=== PATIENT | male | born 1950 | race Caucasian/White ===

== ENCOUNTER 2021-02-14 20:14 | Inpatient (IN) | payer OTHER ==
[2021-02-14] MEDS ORDERED: SODIUM CHLORIDE 0.9% 500 ML 500 ML IV ONE (20:40)
--- NOTE | 2021-02-14 20:40 | ED ---
Extremity Problem HPI - General Chief complaint: Extremity Problem,Nontraumatic Stated complaint: L Leg Wound Time Seen by Provider: 02/14/21 20:29 Source: patient Mode of arrival: ambulatory Limitations: no limitations - History of Present Illness Initial comments: 70-year-old male who denies past medical history presenting to the ER today for chief complaint of left leg wound. Patient states he's had a previous wound that he'll quickly with wound care. He states that for the past 1-2 weeks he has noticed a wound that has been worsening in the left lower leg. Patient states that is now draining and he noticed a blister. Patient denies fevers c hills or general malaise. He denies any nausea or vomiting. Patient denies any weakness or sensation deficits of the extremity. He states it is red and warm to touch. Patient is no additional complaints upon arrival he appears well nontoxic is in no acute distress. - Related Data Home Medications Medication Instructions Recorded Confirmed No Known Home Medications 02/14/21 02/14/21 Allergies Allergy/AdvReac Type Severity Reaction Status Date / Time No Known Allergies Allergy Verified 02/14/21 21:36 Review of Systems ROS Statement: Those systems with pertinent positive or pertinent negative responses have been documented in the HPI. ROS Other: All systems not noted in ROS Statement are negative. Past Medical History Past Medical History: No Reported History History of Any Multi-Drug Resistant Organisms: None Reported Past Surgical History: No Surgical Hx Reported Past Psychological History: No Psychological Hx Reported Smoking Status: Never smoker Past Alcohol Use History: None Reported Past Drug Use History: None Reported General Exam - General Exam Comments Initial Comments: General: The patient is awake and alert, in no distress Eye: +3 mm pupils are equal, round and reactive to light, extra-ocular movements are intact. No nystagmus. There is normal conjunctiva bilaterally. No signs of icterus. Ears, nose, mouth and throat: There are moist mucous membranes and no oral lesions. Neck: The neck is supple, there is no tenderness or JVD. Cardiovascular: There is a regular rate and rhythm. No murmur, rub or gallop is appreciated. Respiratory: Lungs are clear to auscultation, respirations are non-labored, breath sounds are equal. No wheezes, stridor, rales, or rhonchi. Musculoskeletal: Normal ROM, no tenderness. Strength 5/5. Sensation intact. Radial and DP pulses equal bilaterally 2+. Neurological: A&O x 3. CN II-XII intact grossly, There are no obvious motor or sensory deficits. Coordination appears grossly intact. Speech is normal. Skin: Skin is warm and dry and no rashes. draining wound approximately 5- [id number] with a bullae with surrounding redness--its odorous and draining. Circumferential redness of the left lower leg. Psychiatric: Cooperative, appropriate mood & affect, normal judgment. Limitations: no limitations Course Vital Signs 02/14/21 20:15 Temperature 98 F Pulse Rate 97 Respiratory 18 Rate Blood Pressure 164/80 O2 Sat by Pulse 98 Oximetry Medical Decision Making - Medical Decision Making Extensive left lower leg cellulitis with wound that is odorous and draining. There is a bullae noted. No gastric the tissues on x-ray. Pt has no PCP. As patient has poor outpatient care f/u, the extensive nature of disease I feel it is appropriate for patient to be admitted on IV abx, and further monitoring. Dr. James is agreeable. Patient agreeable to admission. Laura BARTLETT for [facility] accepted admission after discussing case. - Lab Data Result diagrams: 02/14/21 20:45 02/14/21 20:45 Lab Results 02/14/21 02/14/21 02/14/21 Range/Units 20:45 20:45 20:45 WBC 8.8 (3.8-10.6) k/uL RBC 4.98 (4.30-5.90) m/uL Hgb 16.1 (13.0-17.5) gm/dL Hct 44.8 (39.0-53.0) % MCV 90.0 (80.0-100.0) fL MCH 32.2 (25.0-35.0) pg MCHC 35.8 (31.0-37.0) g/dL RDW 12.1 (11.5-15.5) % Plt Count 206 (150-450) k/uL MPV 7.8 Neutrophils % 71 % Lymphocytes % 22 % Monocytes % 5 % Eosinophils % 2 % Basophils % 0 % Neutrophils # 6.2 (1.3-7.7) k/uL Lymphocytes # 1.9 (1.0-4.8) k/uL Monocytes # 0.4 (0-1.0) k/uL Eosinophils # 0.1 (0-0.7) k/uL Basophils # 0.0 (0-0.2) k/uL Sodium 139 (137-145) mmol/L Potassium 4.2 (3.5-5.1) mmol/L Chloride 105 (98-107) mmol/L Carbon Dioxide 24 (22-30) mmol/L Anion Gap 10 mmol/L BUN 19 (9-20) mg/dL Creatinine 1.12 (0.66-1.25) mg/dL Est GFR (CKD-EPI)AfAm 78 (>60 ml/min/1.73 sqM) Est GFR (CKD-EPI)NonAf 67 (>60 ml/min/1.73 sqM) Glucose 144 H (74-99) mg/dL Plasma Lactic Acid Manny 2.8 H* (0.7-2.0) mmol/L Calcium 9.4 (8.4-10.2) mg/dL Total Bilirubin 0.5 (0.2-1.3) mg/dL AST 26 (17-59) U/L ALT 24 (4-49) U/L Alkaline Phosphatase 70 (38-126) U/L Total Protein 6.8 (6.3-8.2) g/dL Albumin 4.1 (3.5-5.0) g/dL Disposition Clinical Impression: Leg wound, left, Left leg cellulitis Disposition: ADMITTED IP TO THIS HOSP Condition: Stable Is patient prescribed a controlled substance at d/c from ED?: No Referrals: None,Stated [Primary Care Provider] - 1-2 days Time of Disposition: 21:57 Decision to Admit Reason: Admit from EC Decision Date: 02/14/21 Decision Time: 21:57
[2021-02-14] MEDS ORDERED: VANCOMYCIN IV PER PHARMACY 1 EACH MISC MISCELLANE PRN (20:41)
[2021-02-14] MEDS ORDERED: PIPERACILLIN-TAZOBACTAM 3.375 GM in SODIUM CHLORIDE 0.9% 100 ML IVPB STA (20:41)
[2021-02-14] MEDS ORDERED: VANCOMYCIN 1,750 MG in SODIUM CHLORIDE 0.9% 500 ML 500 ML IVPB STA (20:49)
[2021-02-14] MEDS: SODIUM CHLORIDE 0.9% 1,000 ML IV SCH (21:06)
--- NOTE | 2021-02-14 21:11 | XR ---
EXAMINATION TYPE: XR tibia fibula LT DATE OF EXAM: 02/14/2021 COMPARISON: NONE HISTORY: Pain TECHNIQUE: 4 views FINDINGS: There is diffuse soft tissue swelling around the lower leg and ankle. I see no fracture nor dislocation. Ankle mortise is anatomic. IMPRESSION: Soft tissue swelling. No fracture seen.
[2021-02-14 21:19] LABS: Basophils % (A) 0 %; Eosinophils # (A) 0.1 k/uL (0-0.7); Eosinophils % (A) 2 %; HCT 44.8 % (39.0-53.0); HGB 16.1 gm/dL (13.0-17.5); Lymphocytes # (A) 1.9 k/uL (1.0-4.8); Lymphocytes % (A) 22 %; MCH 32.2 pg (25.0-35.0); MCHC 35.8 g/dL (31.0-37.0); Mean Platelet Volume 7.8; Monocytes # (A) 0.4 k/uL (0-1.0); Monocytes % (A) 5 %; Neutrophils # (A) 6.2 k/uL (1.3-7.7); Neutrophils % (A) 71 %; Platelet Count 206 k/uL (150-450); RBC 4.98 m/uL (4.30-5.90); RDW 12.1 % (11.5-15.5); WBC 8.8 k/uL (3.8-10.6)
[2021-02-14 21:37] LABS: Albumin 4.1 g/dL (3.5-5.0); Calcium 9.4 mg/dL (8.4-10.2); Potassium 4.2 mmol/L (3.5-5.1); Total Bilirubin 0.5 mg/dL (0.2-1.3); Total Protein 6.8 g/dL (6.3-8.2)
[2021-02-14] MEDS ORDERED: NALOXONE 0.4 MG/ML 1 ML VIAL IV PRN (21:58)
[2021-02-14] MEDS ORDERED: SODIUM CHLORIDE 0.9% 1,000 ML IV ONE (22:32)
[2021-02-15] MEDS: PIPERACILLIN-TAZOBACTAM 3.375 GM in SODIUM CHLORIDE 0.9% 100 ML IVPB SCH ×2 (04:19→13:11)
[2021-02-15] MEDS: SODIUM CHLORIDE 0.9% 1,000 ML IV SCH (09:17)
[2021-02-15] MEDS: VANCOMYCIN 1,750 MG in SODIUM CHLORIDE 0.9% 500 ML 500 ML IVPB SCH ×2 (09:17→23:09)
--- NOTE | 2021-02-15 15:36 | P.HPIM ---
History of Present Illness 70-year-old male who denies past medical history presenting to the ER today for chief complaint of left leg wound. Patient states he's had a previous wound that he'll quickly with wound care. He states that for the past 1-2 weeks he has noticed a wound that has been worsening in the left lower leg. Patient states that is now draining and he noticed a blister. Patient denies fevers chills or general malaise. He denies any nausea or vomiting. Patient denies any weakness or sensation deficits of the extremity. He states it is red and warm to touch. Patient is no additional complaints upon arrival he appears well nontoxic is in no acute distress. Patient usually follows up with the wound care at [facility]. Patient did have lactic acidosis patient was started on vancomycin and the Zosyn patient appears to have chronic venous stasis, venous stasis dermatosis and venous ulceration of the leg. Review of Systems REVIEW OF SYSTEMS: CONSTITUTIONAL: No fever, no malaise, no fatigue. HEENT: No recent visual problems or hearing problems. Denied any sore throat. CARDIOVASCULAR: No chest pain, orthopnea, PND, no palpitations, no syncope. PULMONARY: No shortness of breath, no cough, no hemoptysis. GASTROINTESTINAL: No diarrhea, no nausea, no vomiting, no abdominal pain. NEUROLOGICAL: No headaches, no weakness, no numbness. HEMATOLOGICAL: Denies any bleeding or petechiae. GENITOURINARY: Denies any burning micturition, frequency, or urgency. MUSCULOSKELETAL/RHEUMATOLOGICAL: Denies any joint pain, swelling, or any muscle pain. ENDOCRINE: Denies any polyuria or polydipsia. The rest of the 14-point review of systems is negative. Past Medical History Past Medical History: No Reported History History of Any Multi-Drug Resistant Organisms: None Reported Past Surgical History: No Surgical Hx Reported Past Anesthesia/Blood Transfusion Reactions: No Reported Reaction Past Psychological History: No Psychological Hx Reported Smoking Status: Never smoker Past Alcohol Use History: None Reported Past Drug Use History: None Reported Medications and Allergies Home Medications Medication Instructions Recorded Confirmed Type No Known Home Medications 02/14/21 02/14/21 History Allergies Allergy/AdvReac Type Severity Reaction Status Date / Time No Known Allergies Allergy Verified 02/14/21 21:36 Physical Exam Vitals: Vital Signs Temp Pulse Pulse Resp BP BP BP 02/15/21 14:45 98.4 F 90 16 144/81 02/15/21 06:55 98.4 F 89 16 155/83 02/15/21 02:00 97.5 F L 85 16 136/80 02/15/21 00:04 98.2 F 102 H 20 152/81 84/51 02/14/21 23:20 97.9 F 96 18 143/75 02/14/21 20:15 98 F 97 18 164/80 Pulse Ox 02/15/21 14:45 91 L 02/15/21 06:55 95 02/15/21 02:00 94 L 02/15/21 00:04 97 02/14/21 23:20 98 02/14/21 20:15 98 Intake and Output 02/15/21 02/15/21 02/15/21 06:59 14:59 22:59 Intake Total 300 Balance 300 Intake: Oral 300 Other: # Voids 2 2 # Bowel Movements 0 Weight 106.141 kg PHYSICAL EXAMINATION: GENERAL: The patient is alert and oriented x3, not in any acute distress. Well developed, well nourished. HEENT: Pupils are round and equally reacting to light. EOMI. No scleral icterus. No conjunctival pallor. Normocephalic, atraumatic. No pharyngeal erythema. No thyromegaly. CARDIOVASCULAR: S1 and S2 present. No murmurs, rubs, or gallops. PULMONARY: Chest is clear to auscultation, no wheezing or crackles. ABDOMEN: Soft, nontender, nondistended, normoactive bowel sounds. No palpable organomegaly. MUSCULOSKELETAL: No joint swelling or deformity. EXTREMITIES: No cyanosis, clubbing, or pedal edema. NEUROLOGICAL: Gross neurological examination did not reveal any focal deficits. SKIN: Chronic bilateral venous stasis with dermatosis, patient has a 4 into 2 cm stage II ulcer in the left leg on the lateral aspect with on healthy base with pus pockets with surrounding cellulitis. Results CBC & Chem 7: 02/14/21 20:45 02/14/21 20:45 Labs: Abnormal Lab Results - Last 24 Hours (Table) 02/14/21 02/14/21 02/15/21 Range/Units 20:45 20:45 00:09 Glucose 144 H (74-99) mg/dL Plasma Lactic Acid Manny 2.8 H* 2.7 H* (0.7-2.0) mmol/L Microbiology - Last 24 Hours (Table) 02/14/21 20:45 Gram Stain - Preliminary Leg - Left Wound Culture - Preliminary Thrombosis Risk Factor Assmnt - Choose All That Apply Any of the Below Risk Factors Present?: Yes Each Factor Represents 1 point: Age 41-60 years Other Risk Factors: Yes Each Risk Factor Represents 2 Points: Age 61-74 years Other congenital or acquired thrombophilia - If yes, enter type in comment: No Thrombosis Risk Factor Assessment Total Risk Factor Score: 3 Thrombosis Risk Factor Assessment Level: Moderate Risk Assessment and Plan Plan: -Infected left leg ulcer: May need debridement vascular surgery was consulted and he broad-spectrum antibiotics as mentioned above and infectious disease will be consulted. Patient will need aggressive wound care - chronic venous stasis: IV fluids were discontinued patient will be started on low-dose of Lasix with the kidney function monitoring of his creatinine goes up stairs significant to be discontinued and patient need to elevate the legs and use either compression socks or Aaron bandage -DVT prophylaxis with Lovenox
[2021-02-15] MEDS: FUROSEMIDE 10 MG/ML 2 ML VIAL IV SCH (16:04)
[2021-02-15] MEDS: AMPICILLIN-SULBACTAM 3 GM in SODIUM CHLORIDE 0.9% 100 ML IVPB SCH (17:48)
--- NOTE | 2021-02-15 18:01 | CT ---
EXAMINATION TYPE: CT lower leg LT w con DATE OF EXAM: 02/15/2021 COMPARISON: None HISTORY: Left lower leg abscess CT DLP: 807 mGycm Automated exposure control for dose reduction was used. CONTRAST: Performed with IV Contrast, patient injected with 100 mL of Isovue 300. Images obtained from the distal femur to the bottom of the foot with IV contrast. There is subcutaneous edema around the lower leg extending from the proximal calf to the ankle. This is worse on the lateral aspect of the left lower leg. The muscle bundles appear intact. There is no d rainable fluid collection. The tibia and fibula appear intact. There is no pathologic enhancement. Th e knee joint is anatomic. There is no evidence of knee joint effusion. Ankle mortise is anatomic. Exa m limited somewhat by motion at the foot. The metatarsals appear intact. I see no focal bone destruct ion. There is no evidence of a foreign body. IMPRESSION: Diffuse subcutaneous edema around the lower leg that is worse on the lateral aspect. No drainable flu id collection. No evidence of osteomyelitis. No fracture. This is consistent with severe cellulitis.
[2021-02-16] MEDS: AMPICILLIN-SULBACTAM 3 GM in SODIUM CHLORIDE 0.9% 100 ML IVPB SCH ×2 (02:44→06:06)
--- NOTE | 2021-02-16 06:50 | CONS ---
CONSULTATION DATE OF SERVICE: 02/15/2021 REASON FOR CONSULTATION: Left lower extremity wound and cellulitis. HISTORY OF PRESENT ILLNESS: The patient is a 70-year-old male presenting to the ER at [facility] last night for evaluation of left lower extremity wound and swelling and redness. The patient mentioned he did start having a wound on the left lower leg about 1-2 weeks ago. The patient denies having history of any trauma. The patient mentioned that this started more likely as a ruptured blister to the left lateral leg. Denies having any significant drainage from the area. The patient has been using some local treatment without any improvement with nonhealing of this wound. He presented to the hospital last night where the patient was evaluated by the ER physician. On arrival to the ER, the patient has been afebrile and no fever has been recorded since admission to the hospital. The patient did have a lactic acid 2.7, white count was normal. Creatinine was normal. Liver enzymes were normal. Local wound culture obtained currently pending. X-rays of the tibia-fibula did not show any bony changes. The patient was started on vancomycin and Zosyn. Infectious Disease was consulted for further management of antibiotic therapy. The patient mentioned the wound has been there for about 1-2 weeks, however, no history of any trauma. He did have mild dull aching pain to the wound area, 2 to 3/10 and no radiation and denies any foul-smelling purulent drainage. REVIEW OF SYSTEMS: Positive points have been mentioned in HPI. Rest of the systems are negative. PAST MEDICAL HISTORY: Lower extremity venous stasis ulcers and cellulitis. Denies any history of diabetes, hypertension. PAST SURGICAL HISTORY: No major surgery. SOCIAL HISTORY: Denies smoking, drinking, drug use. FAMILY HISTORY: No pertinent findings noticed. ALLERGIES: No known drug allergies. MEDICATIONS: The patient is currently on Lovenox, Lasix, Narcan, vancomycin and Zosyn. PHYSICAL EXAMINATION: VITAL SIGNS: Blood pressure 134/70 with a pulse of 86, temperature 98.2, he is 94% on room air. GENERAL DESCRIPTION: Patient is an elderly male up in the chair in no distress. No tachypnea or accessory muscles of respiration use. HEENT: Examination shows no pallor or scleral icterus. Oral mucous membrane is dry. No pharyngeal erythema or thrush. NECK: Trachea central, no thyromegaly. LUNGS: Unlabored breathing, clear to auscultation. No wheeze or crackle. HEART: S1-S2, regular rate and rhythm. ABDOMEN: Soft, no tenderness. No guarding or rigidity. EXTREMITIES: Left lower extremity did have diffuse swelling and redness and did have some wound to the left lateral leg with some fluctuation noticed. No foul smelling drainage. DIAGNOSTIC IMPRESSION: Patient with acute left lower extremity wound with cellulitis, concern for underlying abscess or possible infected hematoma, likely from a gram-positive skin shyla. Gram- negative infection not entirely excluded. PLAN: 1. CT of the left lower extremity to make sure no evidence of any abscess that may need to be drained. 2. Patient is covered with vancomycin, Pharmacy to dose, continue while watching his kidney function closely. However, switch Zosyn to Unasyn to decrease the risk of nephrotoxicity. 3. Local wound care with dry Aquacel Silver dressing followed by Aaron wrap for compression. 4. We will follow on clinical condition and culture to further adjust medication if needed. Thank you for this consultation. Will follow this patient along with you. MMODL / IJN: [id number] /
[2021-02-16] MEDS: FUROSEMIDE 10 MG/ML 2 ML VIAL IV SCH (08:14)
[2021-02-16] MEDS: ENOXAPARIN 40 MG/0.4 ML SYRINGE SQ SCH (08:14)
[2021-02-16 09:29] LABS: HCT 42.1 % (39.6-50.0); HGB 14.7 g/dL (13.0-17.0); MCH 31.7 pg (27.0-32.0); MCHC 34.9 g/dL (32.0-37.0); MCV 90.9 fL (80.0-97.0); Mean Platelet Volume 10.8 fL (9.5-12.2); Platelet Count 183 X 10*3/uL (140-440); RBC 4.63 X 10*6/uL (4.40-5.60); RDW 12.2 % (11.5-14.5); WBC 6.93 X 10*3/uL (4.50-10.00)
[2021-02-16 09:34] LABS: African American GFR (CKD) 79.5 (60.0-200.0); BUN/Creat Ratio 12.73 Ratio (12.00-20.00); Calcium 8.8 mg/dL (8.7-10.3); Non-African American GFR(CKD) 68.6 (60.0-200.0); Potassium 4.2 mmol/L (3.5-5.5)
[2021-02-16] MEDS ORDERED: CEFEPIME 2 GM in SODIUM CHLORIDE 0.9% 100 ML IVPB ONE (10:00)
--- NOTE | 2021-02-16 13:39 | P.GSCN ---
History of Present Illness History of present illness: 70-year-old gentleman patient has been admitted with history of swelling of the both lower extremity. Patient developed a blister on the lateral aspect of the left lower leg and has been admitted for IV antibiotic and local wound care. Patient has history of 4 chronic venous hypertension no history of DVT in the past. Computed tomography scan of the neck shows negative for abscess Neck examination neck is supple no bruit appreciated Chest is clear first and second sound normal Abdomen soft nontender Vascular femorals are 2+ bilateral patient has a Brown induration of both lower extremity left leg has a lateral aspect has a superficial wound on the lateral aspect no discharge noted Plan is Aquacel silver to the left lower extremity one pillow elevation of the both lower extremity follow with you if patient goes home we'll follow Tuesday the wound clinic at [facility] Past Medical History Past Medical History: No Reported History History of Any Multi-Drug Resistant Organisms: None Reported Past Surgical History: No Surgical Hx Reported Past Anesthesia/Blood Transfusion Reactions: No Reported Reaction Past Psychological History: No Psychological Hx Reported Smoking Status: Never smoker Past Alcohol Use History: None Reported Past Drug Use History: None Reported Medications and Allergies Home Medications Medication Instructions Recorded Confirmed Type No Known Home Medications 02/14/21 02/14/21 History Allergies Allergy/AdvReac Type Severity Reaction Status Date / Time No Known Allergies Allergy Verified 02/14/21 21:36 Surgical - Exam Vital Signs Temp Pulse Resp BP Pulse Ox 98 F 97 18 164/80 98 02/14/21 20:15 02/14/21 20:15 02/14/21 20:15 02/14/21 20:15 02/14/21 20:15 Results - Labs 02/16/21 05:19 02/16/21 05:19 Microbiology - Last 24 Hours (Table) 02/14/21 20:45 Gram Stain - Preliminary Leg - Left Wound Culture - Preliminary Gram Neg Bacilli 02/14/21 20:45 Blood Culture - Preliminary Blood No Growth after 24 hours 02/14/21 21:00 Blood Culture - Preliminary Blood No Growth after 24 hours Diabetes panel 02/16/21 Range/Units 05:19 Sodium 140 (135-145) mmol/L Potassium 4.2 (3.5-5.5) mmol/L Chloride 106 (96-109) mmol/L Carbon Dioxide 25.0 (21.6-31.8) mmol/L BUN 14.0 (9.0-27.0) mg/dL Creatinine 1.1 (0.6-1.5) mg/dL Glucose 107 (70-110) mg/dL Calcium 8.8 (8.7-10.3) mg/dL Calcium panel 02/16/21 Range/Units 05:19 Calcium 8.8 (8.7-10.3) mg/dL Pituitary panel 02/16/21 Range/Units 05:19 Sodium 140 (135-145) mmol/L Potassium 4.2 (3.5-5.5) mmol/L Chloride 106 (96-109) mmol/L Carbon Dioxide 25.0 (21.6-31.8) mmol/L BUN 14.0 (9.0-27.0) mg/dL Creatinine 1.1 (0.6-1.5) mg/dL Glucose 107 (70-110) mg/dL Calcium 8.8 (8.7-10.3) mg/dL Adrenal panel 02/16/21 Range/Units 05:19 Sodium 140 (135-145) mmol/L Potassium 4.2 (3.5-5.5) mmol/L Chloride 106 (96-109) mmol/L Carbon Dioxide 25.0 (21.6-31.8) mmol/L BUN 14.0 (9.0-27.0) mg/dL Creatinine 1.1 (0.6-1.5) mg/dL Glucose 107 (70-110) mg/dL Calcium 8.8 (8.7-10.3) mg/dL
--- NOTE | 2021-02-16 14:11 | P.CONS ---
History of Present Illness - Reason for Consult Consult date: 02/16/21 wound care - History of Present Illness This is a 70-year-old patient was admitted with a history of swelling of both lower extremity. Patient developed a blister to the lateral aspect of the left lower leg and was admitted for cellulitis, local wound care and IV antibiotics. Patient has history of chronic venous hypertension to bilateral lower extremities. He is no history of DVTs in the past. Right lower extremity is edematous with no open ulcerations. Left lower extremity has a dressing in place that is clean and dry. Ulceration was assessed by Dr. Sanchez previously. Patient has a nonhealing ulcerative fat layer exposure to the lateral aspect of the left lower extremity. Review Of Systems: Constitutional: No fever, no chills, no night sweats. No weight change. No weakness, fatigue or lethargy. No daytime sleepiness. Integumentary:reports wounds, no lesions. No rash or pruritus. No unusual bruising. No change in hair or nails. Physical exam: General Appearance: Alert, cooperative, no distress, appears stated age. Skin: See HPI all other Skin color, texture, tugor normal, no rashes or lesions. Neurologic: Alert oriented x3 Assessment/plan: 1. Chronic venous hypertension with ulceration bilateral lower extremities. Apply absorptive silver to the left lower extremity saline moistened gauze dry gauze rolled gauze secured with paper tape. 2 layers of Tubigrip to help with compression. Change Tuesday. Patient will follow-up in the wound care center with Dr. Sanchez on Tuesday at 2:00. Right lower extremity apply zinc barrier cream 2 layers of Tubigrip changing every other day. 2. Nonhealing ulceration with fatty layer exposure left lateral lower extremity. As noted above Thank you for the consultation any questions please contact the wound care center DNP note has been reviewed and discussed with Dr. Hitchcock and the impression and plan of care has been directed as dictated. Past Medical History Past Medical History: No Reported History History of Any Multi-Drug Resistant Organisms: None Reported Past Surgical History: No Surgical Hx Reported Past Anesthesia/Blood Transfusion Reactions: No Reported Reaction Past Psychological History: No Psychological Hx Reported Smoking Status: Never smoker Past Alcohol Use History: None Reported Past Drug Use History: None Reported Medications and Allergies Home Medications Medication Instructions Recorded Confirmed Type No Known Home Medications 02/14/21 02/14/21 History Allergies Allergy/AdvReac Type Severity Reaction Status Date / Time No Known Allergies Allergy Verified 02/14/21 21:36 Physical Exam Vitals: Vital Signs Temp Pulse Resp BP Pulse Ox 02/16/21 07:00 97.8 F 77 16 130/76 92 L 02/16/21 02:00 98.2 F 76 16 115/67 93 L 02/15/21 20:00 98.2 F 76 18 124/70 94 L 02/15/21 14:45 98.4 F 90 16 144/81 91 L Intake and Output 02/15/21 02/16/21 02/16/21 22:59 06:59 14:59 Other: # Voids 1 3 Results CBC & Chem 7: 02/16/21 05:19 02/16/21 05:19 Labs: Microbiology - Last 24 Hours (Table) 02/14/21 20:45 Gram Stain - Preliminary Leg - Left Wound Culture - Preliminary Gram Neg Bacilli 02/14/21 20:45 Blood Culture - Preliminary Blood No Growth after 24 hours 02/14/21 21:00 Blood Culture - Preliminary Blood No Growth after 24 hours Assessment and Plan (1) Chronic venous hypertension w/ulcer and inflammation involv both sides Current Visit: Yes Status: Acute Code(s): I87.333 - CHRONIC VENOUS HTN W ULCER AND INFLAM OF BILATERAL LOW EXTRM; L97.919 - NON-PRS CHRONIC ULC UNSP PRT OF R LOW LEG W UNSP SEVERITY; L97.929 - NON-PRS CHRONIC ULC UNSP PRT OF L LOW LEG W UNSP SEVERITY SNOMED Code(s): 028899609 (2) Nonhealing ulcer of left lower extremity with fat layer exposed Current Visit: Yes Status: Acute Code(s): L97.922 - NON-PRS CHR ULC UNSP PRT OF L LOW LEG W FAT LAYER EXPOSED SNOMED Code(s): 08991315
[2021-02-16] MEDS: CEFEPIME 2 GM in SODIUM CHLORIDE 0.9% 100 ML IVPB SCH (22:42)
--- NOTE | 2021-02-17 01:26 | PN ---
PROGRESS NOTE DATE OF SERVICE: 02/16/2021 REASON FOR FOLLOWUP: Left lower extremity wound and cellulitis. INTERVAL HISTORY: Patient is currently afebrile. The patient is breathing comfortably. Patient denies having any chest pain. No shortness of breath or cough. No nausea. No vomiting. No abdominal pain or any worsening pain to the left leg. PHYSICAL EXAMINATION: Blood pressure 145/77, pulse of 83, temperature 98.3. He is 94% on room air. General description: The patient is an elderly male up in the chair in no distress. Respiratory system: Unlabored breathing, clear to auscultation anteriorly. Heart S1, S2. Regular rate and rhythm. Abdomen soft, no tenderness. Left lower extremity is currently dressed up. No obvious drainage on the dressing. LABS: Hemoglobin is 14.3, white count 6.9, BUN of 14, creatinine 1.1. DIAGNOSTIC IMPRESSION AND PLAN: Patient with left lower extremity wound cellulitis. CT was negative for any abscess. Wound culture with Gram-negative. Patient is covered with Cefepime. Vancomycin has been discontinued and we will monitor clinical course closely. MMODL / IJN: [id number] /
[2021-02-17] MEDS: FUROSEMIDE 10 MG/ML 2 ML VIAL IV SCH (08:35)
[2021-02-17] MEDS: CEFEPIME 2 GM in SODIUM CHLORIDE 0.9% 100 ML IVPB SCH ×2 (08:35→20:15)
[2021-02-17] MEDS: ENOXAPARIN 40 MG/0.4 ML SYRINGE SQ SCH (08:35)
--- NOTE | 2021-02-17 14:50 | P.PN ---
Subjective Progress Note Date: 02/17/21 This is a pleasant 70-year-old male who was recently admitted for left leg wound possible cellulitis and is being closely monitored. Infectious disease along with wound care following. Patient is maintained on IV antibiotics in the form of cefepime and will continue at this time while waiting for cultures to finalized. Preliminary culture showing gram negative bacilli and Staphylococcus aureus. Patient did have wound dressings done today that are dry and intact. She also has some bilateral lower extremity swelling and edema noted and will continue with Aaron wraps at this time. Patient instructed to elevate lower extremities while at rest. Patient will continue to follow with Dr. Sanchez at the wound center in the outpatient setting. Review of systems: Constitutional: No reports of fatigue, fever, or chills Cardiovascular: No reports of chest pain or palpitations Respiratory: No reports of shortness of breath or cough GI: No reports of nausea, vomiting, or diarrhea : No reports of dysuria or retention Neurovascular: No reports of weakness or numbness All medications have been reviewed Objective - Vital Signs Vital signs: Vital Signs Temp 98.2 F 02/17/21 14:00 Pulse 82 02/17/21 14:00 Resp 16 02/17/21 14:00 BP 137/55 02/17/21 14:00 Pulse Ox 95 02/17/21 14:00 Intake & Output 02/16/21 02/17/21 02/17/21 18:59 06:59 18:59 Other: Voiding Method Toilet # Voids 2 2 3 # Bowel Movements 0 - Exam GENERAL: The patient is alert and oriented x3, not in any acute distress. Well developed, well nourished. HEENT: Pupils are round and equally reacting to light. EOMI. No scleral icterus. No conjunctival pallor. Normocephalic, atraumatic. No pharyngeal erythema. No thyromegaly. CARDIOVASCULAR: S1 and S2 present. No murmurs, rubs, or gallops. PULMONARY: Chest is clear to auscultation, no wheezing or crackles. ABDOMEN: Soft, nontender, nondistended, normoactive bowel sounds. No palpable organomegaly. MUSCULOSKELETAL: No joint swelling or deformity. EXTREMITIES: No cyanosis, clubbing, or pedal edema. NEUROLOGICAL: Gross neurological examination did not reveal any focal deficits. SKIN: Chronic bilateral venous stasis with dermatosis, patient has a 4x2 cm stage II ulcer in the left leg on the lateral aspect with on healthy base with pus pockets with surrounding cellulitis. Wound dressing is currently dry and intact and recently changed - Labs CBC & Chem 7: 02/16/21 05:19 02/17/21 04:53 Labs: Microbiology - Last 24 Hours (Table) 02/14/21 20:45 Gram Stain - Preliminary Leg - Left Wound Culture - Preliminary Gram Neg Bacilli Presumptive Staph aureus 02/14/21 20:45 Blood Culture - Preliminary Blood No Growth after 48 hours 02/14/21 21:00 Blood Culture - Preliminary Blood No Growth after 48 hours Assessment and Plan Assessment: -Infected left leg ulcer: Currently maintained on IV cefepime and infectious disease following. Patient was seen by Dr. Sanchez and will be following in the outpatient setting. Care is following. Patient will need aggressive wound care -chronic venous stasis: Patient is receiving IV Lasix 20 mg daily and using Aaron wraps to bilateral lower extremities for continued swelling and edema noted. Patient also instructed to elevate lower extremities while at rest. -DVT prophylaxis with Lovenox Plan: Continue with current medications. Patient is maintained on IV cefepime while awaiting for cultures to finalized. Preliminary culture showing gram-negative bacilli with Staphylococcus aureus and awaiting for finalized cultures. Infe ctious disease is following along with wound care. Patient will follow-up with Dr. Sanchez at the wound center in the outpatient setting. Discussed with the patient about elevating lower extremities while at rest to help with the edema along with continuing with Aaron wraps and recommend wrapping from the toes up to the knees to help with the swelling. Will repeat a.m. labs and continue to monitor closely. Further recommendations to follow based on the clinical course of the patient.
--- NOTE | 2021-02-18 01:51 | PN ---
PROGRESS NOTE DATE OF SERVICE: 02/17/2021 REASON FOR FOLLOWUP: Left lower extremity wound and cellulitis. INTERVAL HISTORY: Patient is currently afebrile. The patient is breathing comfortably. The patient denies having any chest pain, shortness of breath or cough. No nausea, vomiting, abdominal pain, or any worsening pain to the left leg. PHYSICAL EXAMINATION: Blood pressure 145/78 with a pulse of 71, temperature of 98. He is 96% on room air. General description is an elderly male lying in bed in no distress. Respiratory system: Unlabored breathing, clear to auscultation anteriorly. Heart S1, S2. Regular rate and rhythm. Abdomen: Soft, no tenderness. Left leg did have swelling and redness. LABS: Wound culture showing gram-negative as well as Staph aureus. DIAGNOSTIC IMPRESSION AND PLAN: Patient with left lower extremity wound and cellulitis. Culture with Gram-negative and Staph aureus, possible MSSA. Patient is covered with cefepime. Plan is to continue with current antibiotic while waiting for the culture to finalize. Local wound care with Aquacel dressing and Aaron wrap. Continue supportive care. MMODL / IJN: [id number] /
[2021-02-18] MEDS: FUROSEMIDE 10 MG/ML 2 ML VIAL IV SCH (07:28)
[2021-02-18] MEDS: CEFEPIME 2 GM in SODIUM CHLORIDE 0.9% 100 ML IVPB SCH ×2 (07:29→20:06)
[2021-02-18] MEDS: ENOXAPARIN 40 MG/0.4 ML SYRINGE SQ SCH (07:29)
[2021-02-18] MEDS ORDERED: ACETAMINOPHEN TAB 325 MG TAB PO PRN (10:20)
--- NOTE | 2021-02-18 12:53 | P.PN ---
Subjective Progress Note Date: 02/18/21 This is a pleasant 70-year-old male who was recently admitted for left leg wound possible cellulitis and is being closely monitored. Infectious disease along with wound care following. Patient is maintained on IV antibiotics in the form of cefepime and will continue at this time while waiting for cultures to finalized. Preliminary culture showing gram negative bacilli and Staphylococcus aureus. Patient did have wound dressings done today that are dry and intact. She also has some bilateral lower extremity swelling and edema noted and will continue with Aaron wraps at this time. Patient instructed to elevate lower extremities while at rest. Patient will continue to follow with Dr. Sanchez at the wound center in the outpatient setting. 02/18/2021 Patient is seen and evaluated in follow-up this morning with no acute overnight issues. Patient is having some minimal discomfort noted with dressing changes and will add Tylenol as needed. Patient denies any chest pain or shortness of breath. Aaron wraps noted to bilateral lower extremities from the toes up to the knees showing improvement in edema and once again instructed the patient to elevate lower extremities while at rest. Currently awaiting for cultures are finalized and patient is maintained on IV cefepime. Infectious disease is following. Creatinine today is 1.03. Review of systems: Constitutional: No reports of fatigue, fever, or chills Cardiovascular: No reports of chest pain or palpitations Respiratory: No reports of shortness of breath or cough GI: No reports of nausea, vomiting, or diarrhea : No reports of dysuria or retention Neurovascular: No reports of weakness or numbness All medications have been reviewed Objective - Vital Signs Vital signs: Vital Signs Temp 98 F 02/18/21 07:49 Pulse 76 02/18/21 07:49 Resp 16 02/18/21 07:49 BP 123/70 02/18/21 07:49 Pulse Ox 92 L 02/18/21 07:49 Intake & Output 02/17/21 02/18/21 02/18/21 18:59 06:59 18:59 Intake Total 240 Balance 240 Intake: Oral 240 Other: Voiding Method Toilet Toilet # Voids 3 1 # Bowel Movements 0 0 - Exam GENERAL: The patient is alert and oriented x3, not in any acute distress. Well developed, well nourished. HEENT: Pupils are round and equally reacting to light. EOMI. No scleral icterus. No conjunctival pallor. Normocephalic, atraumatic. No pharyngeal erythema. No t hyromegaly. CARDIOVASCULAR: S1 and S2 present. No murmurs, rubs, or gallops. PULMONARY: Chest is clear to auscultation, no wheezing or crackles. ABDOMEN: Soft, nontender, nondistended, normoactive bowel sounds. No palpable organomegaly. MUSCULOSKELETAL: No joint swelling or deformity. EXTREMITIES: No cyanosis, clubbing, or pedal edema. NEUROLOGICAL: Gross neurological examination did not reveal any focal deficits. SKIN: Chronic bilateral venous stasis with dermatosis, patient has a 4x2 cm stage II ulcer in the left leg on the lateral aspect with on healthy base with pus pockets with surrounding cellulitis. Wound dressing is currently dry and intact and recently changed - Labs CBC & Chem 7: 02/16/21 05:19 02/18/21 05:18 Labs: Microbiology - Last 24 Hours (Table) 02/14/21 20:45 Blood Culture - Preliminary Blood No Growth after 72 hours 02/14/21 21:00 Blood Culture - Preliminary Blood No Growth after 72 hours 02/14/21 20:45 Gram Stain - Preliminary Leg - Left Wound Culture - Preliminary Gram Neg Bacilli Presumptive Staph aureus Assessment and Plan Assessment: -Infected left leg ulcer: Currently maintained on IV cefepime and infectious disease following. Patient was seen by Dr. Sanchez and will be following in the outpatient setting. Wound care is following. Patient will need aggressive wound care -chronic venous stasis: Patient is receiving IV Lasix 20 mg daily and using Aaron wraps to bilateral lower extremities for continued swelling and edema noted. Patient also instructed to elevate lower extremities while at rest. -DVT prophylaxis with Lovenox Plan: Continue with current medications. Patient is maintained on IV cefepime while awaiting for cultures to finalized. Preliminary culture showing gram-negative bacilli with Staphylococcus aureus and awaiting for finalized cultures. Infectious disease is following along with wound care. Patient will follow-up with Dr. Sanchez at the wound center in the outpatient setting. Discussed with the patient about elevating lower extremities while at rest to help with the edema along with continuing with Aaron wraps and recommend wrapping from the toes up to the knees to help with the swelling. Further recommendations to follow based on the clinical course of the patient. Anticipate discharge in 24 hours
--- NOTE | 2021-02-18 15:52 | PN ---
PROGRESS NOTE DATE OF SERVICE: 02/18/2021 REASON FOR FOLLOWUP: Left lower extremity wound and cellulitis. INTERVAL HISTORY: Patient is currently afebrile. Patient is breathing comfortably. The patient denies having any chest pain, shortness of breath or cough. No abdominal pain or pain to the left lower extremity. PHYSICAL EXAMINATION: Blood pressure 136/80 with a pulse of 92, temperature 99.4. He is 93% on room air. General description is an elderly male up in the chair in no distress. RESPIRATORY SYSTEM: Unlabored breathing, clear to auscultation anteriorly. HEART: S1, S2. Regular rate and rhythm. ABDOMEN: Soft, no tenderness. Left leg is currently dressed up. No obvious drainage on the dressing. LABS: No new labs have been obtained today. Local culture of Pseudomonas and Staph aureus, Staph aureus is pending. DIAGNOSTIC IMPRESSION AND PLAN: Patient with left lower extremity wound with secondary cellulitis culture with Staph and Pseudomonas, sensitivity to Staph currently pending. Will wait for the culture to finalize to determine his discharge antibiotics, hopefully oral. Continue supportive care. MMODL / IJN: [id number] /
[2021-02-19 07:55] VITALS: BP 121/66; PULSE 74; RESP 16; TEMP 97.1
[2021-02-19] MEDS: ENOXAPARIN 40 MG/0.4 ML SYRINGE SQ SCH (07:56)
[2021-02-19] MEDS: CEFEPIME 2 GM in SODIUM CHLORIDE 0.9% 100 ML IVPB SCH (07:56)
[2021-02-19] MEDS: FUROSEMIDE 10 MG/ML 2 ML VIAL IV SCH (07:57)
--- NOTE | 2021-02-19 15:18 | PN ---
PROGRESS NOTE DATE OF SERVICE: 02/19/2021 REASON FOR FOLLOWUP: Left lower extremity wound and cellulitis. INTERVAL HISTORY: Patient was seen on rounds this morning. Patient has been afebrile. Patient is breathing comfortably. The patient denies having any chest pain, shortness of breath or cough. No abdominal pain or pain to the left leg. PHYSICAL EXAMINATION: Blood pressure 121/66, pulse 74, temperature 97.1. He is 96% on room air. General description is an elderly male lying in bed in no distress. RESPIRATORY SYSTEM: Unlabored breathing, clear to auscultation anteriorly. HEART: S1, S2. Regular rate and rhythm. ABDOMEN: Soft, no tenderness. LABS: No new labs have been obtained today. Culture has been positive for Pseudomonas and MSSA. DIAGNOSTIC IMPRESSION AND PLAN: Patient with left lower extremity wound and cellulitis, likely venostasis ulcer. Overall improvement on cefepime. Finish therapy with oral Cipro and Keflex for 2 weeks. Local wound care with Aquacel Silver dressing and follow up in the wound care center next week. Questions and concerns were answered. MMODL / IJN: [id number] /
--- NOTE | 2021-02-19 16:43 | P.DS ---
Providers Date of admission: 02/16/21 15:13 Expected date of discharge: 02/19/21 Attending physician: Mendoza Bell Consults: 02/15/21 12:13 Consult Physician Routine Consulting Provider: Zia Sanchez Consult Reason/Comments: left leg wound Do you want consulting provider notified?: Yes Consult Physician Routine Consulting Provider: Cade Jose Consult Reason/Comments: left leg wound Do you want consulting provider notified?: Yes Primary care physician: Stated None Hospital Course: Final diagnosis -Infected left leg ulcer -chronic venous stasis -DVT prophylaxis Discharge disposition Patient is being discharged in a stable condition with guarded prognosis to home . Patient will follow-up with Dr. Sharma in the outpatient setting upon discharge. Patient is also to follow-up with infectious disease and Dr. Sanchez at the wound center in the outpatient setting. Patient will continue on oral antibiotics in the form of Cipro and Keflex for the next 10 days. Total time taken is greater than 35 minutes. Hospital course This is a pleasant 70-year-old male who was recently admitted for left leg wound possible cellulitis and is being closely monitored. Infectious disease along with wound care following. Patient is maintained on IV antibiotics in the form of cefepime and will continue at this time while waiting for cultures to finalized. Preliminary culture showing gram negative bacilli and Staphylococcus aureus. Patient did have wound dressings done today that are dry and intact. She also has some bilateral lower extremity swelling and edema noted and will continue with Aaron wraps at this time. Patient instructed to elevate lower extremities while at rest. Patient will continue to follow with Dr. Sanchez at the wound center in the outpatient setting. 02/18/2021 Patient is seen and evaluated in follow-up this morning with no acute overnight issues. Patient is having some minimal discomfort noted with dressing changes and will add Tylenol as needed. Patient denies any chest pain or shortness of breath. Aaron wraps noted to bilateral lower extremities from the toes up to the knees showing improvement in edema and once again instructed the patient to elevate lower extremities while at rest. Currently awaiting for cultures are finalized and patient is maintained on IV cefepime. Infectious disease is following. Creatinine today is 1.03. 02/19/2021 Patient is seen and evaluated in follow-up this morning with no acute overnight issues. Wound cultures finalized showing Pseudomonas fluorescens/[place] with Staphylococcus aureus and will continue in the outpatient setting with Cipro and Keflex with close outpatient follow-up at the wound center. Instructed to follow-up with Dr. Jose in one week. Patient also has an appointment with Dr. Sanchez this week. Patient to continue with local wound care and also instructed the patient to continue to wrap bilateral lower extremities from the toes up to the knees in Aaron wraps and elevate lower extremities while at rest. Currently no reports of chest pain, worsening shortness of breath, or palpitations. Patient is afebrile. No reports of nausea or vomiting and patient is tolerating diet. Patient will be discharged home today. On exam vital signs are stable. Cardio S1, S2 are muffled. Respiratory system shows diminished breath sounds at the bases with no wheezing or rhonchi noted. Abdomen is soft and nontender. Nervous system shows no focal deficits. Please refer to medication reconciliation sheet for a list of medications. Patient Condition at Discharge: Stable Plan - Discharge Summary Discharge Rx Participant: Yes New Discharge Prescriptions: New Ciprofloxacin HCl [Cipro] 500 mg PO BID 10 Days #20 tab Cephalexin [Keflex] 500 mg PO Q6HR 10 Days #40 cap Furosemide [Lasix] 20 mg PO DAILY 5 Days #5 tablet Acetaminophen Tab [Tylenol] 650 mg PO Q6HR PRN tab PRN Reason: Fever and/ or Mild Pain Discharge Medication List Acetaminophen Tab [Tylenol] 650 mg PO Q6HR PRN tab 02/19/21 [Rx] Cephalexin [Keflex] 500 mg PO Q6HR 10 Days #40 cap 02/19/21 [Rx] Ciprofloxacin HCl [Cipro] 500 mg PO BID 10 Days #20 tab 02/19/21 [Rx] Furosemide [Lasix] 20 mg PO DAILY 5 Days #5 tablet 02/19/21 [Rx] Follow up Appointment(s)/Referral(s): Conrad Sharma MD [REFERRING] - 1-2 Days [facility],Infusion [NON-STAFF] - Cade Jose MD [STAFF PHYSICIAN] - 1 Week Patient Instructions/Handouts: Wound Infection (DC) Activity/Diet/Wound Care/Special Instructions: Aquacel silver to the leg wound than AARON wrap , change q48hr patient to go to wound center with Dr jose 1 week , at [facility], call [phone] to make an appointment, message left with wound center for follow up appointment. Continue heart healthy diet Continue with antibiotics as prescribed Follow-up at the wound center with Dr. Jose in one week Continue with wound care and applying Aaron wraps to bilateral lower extremities from the toes up to the knees and elevate lower extremities while at rest Continue with Lasix for 4-5 more days and then discontinue Get up at least once every hour and walk around while working Discharge Disposition: HOME SELF-CARE
== END 2021-02-19 14:10 | disposition home or self-care (01) | DRG 593 ==
LOC: EC 20:14 → 6NMEDSUR 21:54 → OBSVTOIN 02-16 15:13
PROVIDERS: ADMIT Hospitalist; ATTEND Hospitalist
DX: L97.922 Non-pressure chronic ulcer of unspecified part of left lower leg with fat layer exposed (principal); L03.116 Cellulitis of left lower limb; E87.2 Acidosis; I87.309 Chronic venous hypertension (idiopathic) without complications of unspecified lower extremity; I83.019 Varicose veins of right lower extremity with ulcer of unspecified site; B96.5 Pseudomonas (aeruginosa) (mallei) (pseudomallei) as the cause of diseases classified elsewhere; Z20.822 Contact with and (suspected) exposure to COVID-19
CPT/HCPCS: 36415; 80048; 80053; 82565; 83605; 85025; 85027; 87040; 87070; 87077; 87186; 87205; 87635; 96365; 96375; 99285